=== PATIENT | female | born 1955 | race Caucasian/White ===

== ENCOUNTER 2020-09-04 22:24 | Inpatient (IN) | payer MEDICARE, OTHER ==
[~2020-09-04] VITALS: Ht 165.1 cm; Wt 56.3 kg
[2020-09-04] MEDS ORDERED: fentaNYL PF VIAL 100 MCG/2 ML VIAL IVP ONE (23:15)
[2020-09-04 23:21] LABS: BASO # 0.1 x10^3/uL (0.0-0.2); BASO % 1 % (0-3); EOS # 0.2 x10^3/uL (0.0-0.7); EOS % 2 % (0-3); HEMATOCRIT 32.5 % (36.0-47.0); LYMPH # 1.7 x10^3/uL (1.0-4.8); LYMPH % 13 % (24-48); MEAN CORPUSCULAR HEMOGLOBIN 29 pg (25-35); MEAN CORPUSCULAR HGB CONC 34 g/dL (31-37); MEAN CORPUSCULAR VOLUME 86 fL (79-100); MONO % 8 % (0-9); NEUT # 10.1 x10^3/uL (1.8-7.7); NEUT % 77 % (31-73); PLATELET COUNT 487 x10^3/uL (140-400); RED BLOOD COUNT 3.77 x10^6/uL (3.50-5.40); WHITE BLOOD COUNT 13.1 x10^3/uL (4.0-11.0)
--- NOTE | 2020-09-04 23:30 | RAD ---
XR CHEST 1V Clinical History: Reason: chf / Spl. Instructions: / History: Technique: AP view of the chest was obtained at 09/04/2020 11:04 PM. Comparison: None. Findings: The cardiomediastinal silhouette is normal. The pulmonary vasculature is normal. The lungs and pleura l margins are clear. There is deformity of the posterior lateral right sixth and seventh ribs consist ent with old fractures. Impression: No evidence of an acute cardiopulmonary process. Electronically signed by: Wyatt Harkins III, MD (09/04/2020 11:27 PM) [facility]
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
[2020-09-04 23:37] LABS: ALBUMIN 2.9 g/dL (3.4-5.0); ALBUMIN/GLOBULIN RATIO 0.7 (1.0-1.7); C-REACTIVE PROTEIN 116.6 mg/L (0-3.3); CREATININE 0.5 mg/dL (0.6-1.0); GFR 123.8; TOTAL BILIRUBIN 0.5 mg/dL (0.2-1.0); TOTAL PROTEIN 6.9 g/dL (6.4-8.2)
[2020-09-04 23:39] LABS: POTASSIUM 2.6 mmol/L (3.5-5.1)
[2020-09-04 23:50] LABS: BILIRUBIN,URINE NEGATIVE (NEG); CLARITY,URINE CLEAR; COLOR,URINE YELLOW; NITRITE,URINE NEGATIVE (NEG); PROTEIN,URINE NEGATIVE (NEG-TRACE)
[2020-09-04 23:54] LABS: RBC,URINE 0 /HPF (0-2)
[2020-09-04 23:55] LABS: BACTERIA,URINE 0 /HPF (0-FEW); BARBITURATES NEG (NEG); BENZODIAZEPINES POS (NEG); CANNABINOIDS POS (NEG); COCAINE POS (NEG); METHADONE NEG (NEG); OPIATES POS (NEG); PHENCYCLIDINE NEG (NEG)
[2020-09-04 23:56] LABS: AMPHETAMINE/METHAMPHETAMINE POS (NEG)
[2020-09-05] MEDS ORDERED: CLINDAMYCIN 600MG PREMIX 50 ML IV ONE (00:15)
[2020-09-05] MEDS ORDERED: POTASSIUM CHLORIDE 20 MEQ TABLET.ER. PO ONE (00:30)
[2020-09-05] MEDS ORDERED: IOHEXOL 350 MG/ML 100 ML VIAL. IV ONE (00:45)
[2020-09-05] MEDS ORDERED: CONTRAST GIVEN. MC PRN (00:45)
--- NOTE | 2020-09-05 01:39 | RAD ---
INDICATION: Reason: pe / Spl. Instructions: / History: Shortness of breath. COMPARISON: None. TECHNIQUE: Axial CT images obtained through the chest. Intravenous contrast utilized. Angiogram 3D images proce ssed per protocol. One or more of the following individualized dose reduction techniques were utilized for this examinat ion: 1. Automated exposure control; 2. Adjustment of the mA and/or kV according to patient size; 3 . Use of iterative reconstruction technique. FINDINGS: Mild groundglass opacities bilaterally. No evidence of pneumothorax. Ascending thoracic aorta prominent in size measuring up to about 41 mm. 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 Lymphadenopathy in the axilla. For example on the right measuring up to about 12 mm short axis. Scattered calcific atherosclerosis. Portion of ascending thoracic aorta is obscured by motion. No central pulmonary embolus with some limitation peripherally secondary to motion. Scoliotic curvature the spine with multilevel degenerative changes. Mild compression deformity at T3 and L2. IMPRESSION: No central pulmonary embolus. Ascending thoracic aorta is prominent in size. Mild groundglass opacities which could be from mild edema or small airway inflammation. Lymphadenopathy in the bilateral axilla. Could be reactive in nature but would consider obtaining a f ollow-up to ensure that this decreases in severity to exclude neoplastic causes. Partially visualized right humerus has a moth eaten appearance. Although this could be artifactual in nature may be helpful to obtain follow-up radiographs of the humerus to ensure that there is not a m arrow infiltrative lesion contributing Electronically signed by: Roger Amaral MD (09/05/2020 1:37 AM) [id number]
[2020-09-05] MEDS ORDERED: ACETAMINOPHEN 325 MG TABLET. PO PRN (02:00)
[2020-09-05] MEDS ORDERED: ONDANSETRON PF 4 MG/2 ML VIAL. IV PRN (02:00)
[2020-09-05 03:00] VITALS: BP 113/63
--- NOTE | 2020-09-05 03:25 | NUR ---
Patient admitted from ER to room 410 per wheelchair. Admitting diagnosis: bilateral lower extremity cellulitis with 3 wounds and numerous scabbed areas. Patient states she has an OCD type of illness where she picks at her skin. Patient is alert and oriented X4. Patient lives alone. Patient had positive drug screen in ER. See lab report. Patient denies using street drugs. Patient is allergic to Penicillin and Sulfa. Photos taken of wounds and scabs. IV antibiotics were started in ER. Patient has been using cane for last several weeks due to the amount of swelling in her lower legs and feet. Instructed patient that she needs to call for assistance when she gets up to walk and go to the bathroom. Patient is non-compliant with this instruction. Will continue to monitor patient and assess her needs.
[2020-09-05] MEDS: MORPHINE SULFATE 4 MG/ML VIAL. IV PRN ×4 (04:21→20:39)
[2020-09-05] MEDS ORDERED: CLINDAMYCIN 600MG PREMIX 50 ML IV SCH (06:00)
[2020-09-05 07:00] VITALS: BP 108/63
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
[2020-09-05] MEDS ORDERED: VANCOMYCIN 1 GM in IV NORMAL SALINE 250ML 250 ML IV SCH (09:45)
--- NOTE | 2020-09-05 09:49 | NUR ---
REASSESSMENTS FROM ED CLEARED FROM EMAR.
--- NOTE | 2020-09-05 09:52 | NUR ---
PT TRANSFERRED TO 6S. REPORT GIVEN TO AVELINO. COVID SWAB DONE AND SENT TO LAB PRIOR TO TRANSFER. PT BELONGINGS WERE PACKED BY PT INCLUDING PURSE, CELL PHONE AND SENIOR PROGRAM PLANNER. ASSISTED PT TO WHEELCHAIR AND WAS TAKEN TO [id number] BY ANGULAR JS DEVELOPER.
[2020-09-05] MEDS ORDERED: VANCOMYCIN 1.5 GM in IV NORMAL SALINE 500ML BAG 500 ML IV ONE (10:00)
[2020-09-05] MEDS: ENOXAPARIN 40 MG/0.4 ML SYRINGE. SQ SCH (10:41)
[2020-09-05 11:00] VITALS: BP 107/51
[2020-09-05] MEDS: VANCOMYCIN PER PHARMACY MC PRN (11:40)
--- NOTE | 2020-09-05 11:42 | NUR ---
Pharmacy Vancomycin Dosing Note S:Consulted to monitor and dose vancomycin started 09/05/20. O:JEROMY MUJICA is a 65 year old F with Cellulitis . Height: 5 feet, 5 inches Weight: 56.3 kg [place] Body Weight: 57.00 Adjusted Body Weight: 56.72 Dosing Weight: Actual Other Antibiotics: LABS: Last BUN: Last Creatinine: 0.5 Creatinine Clearance: 50 mL/min Last WBC: 13.1 Last Procalcitonin: Tmax (past 24 hours): Microbiology: I/O: Drug Levels: Last level: on at Last dose given 09/05/20 at 1100 Vancomycin Dosing: Loading Dose: 1500 mg x1 Dosing Weight: Actual Target Trough: 10-20 A: Based on: WEIGHT AND RENAL FUNCTION, VANCOMYCIN 1.5GM IV BOLUS GIVEN, P: 1. Begin Vancomycin 1000 mg IV q24h TOMORROW 2. Follow up Trough level on 09/07/20 at 1030 3. Pharmacy will continue to monitor, follow and adjust therapy as needed. KATHERINE DELACRUZ [facility], 09/05/20 [id number]
--- NOTE | 2020-09-05 12:25 | RAD ---
EXAM: Bilateral lower extremity venous Doppler sonogram. HISTORY: Pain and swelling. TECHNIQUE: Craft scale and color Doppler sonographic evaluation of the bilateral lower extremity veins with spectral waveform analysis was performed. FINDINGS: There is normal color flow, normal compressibility and there are normal spectral waveforms in the common femoral, superficial femoral, popliteal, posterior tibial and greater saphenous veins. There is bilateral lower examination soft tissue edema. There are prominent inguinal lymph nodes whic h are likely reactive in etiology. IMPRESSION: No Doppler evidence of lower extremity deep venous thrombosis. Electronically signed by: Bobbi Waddell MD (09/05/2020 12:21 PM) [id number]
[2020-09-05 15:00] VITALS: BP 107/47
--- NOTE | 2020-09-05 16:51 | NUR ---
Wound Care Wound Type/Assessment: Consult to eval and treat fo cellulitic wounds to L middle finger and RLE. Pt positive for amphetamine, opioids, THC, and benzodiazepines on admission, and denies use of any aforementioned substances. Pt his highly anxious and verbose, with rambling speech, unable to stay on topic. 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 Scabs of varying size are present on arms, hands, legs, feet. All are intact, dry and stable, except for a [id number] fluctuant scab on the R lateral calf. Her L finger is thick and callused in the palmar inner interphalangeal joint, does not appear open but is swollen, red, and painful. Distal tip of the finger is blanched. Pt states the finger has become swollen and drained pus multiple times before. She is currently on multiple IV ABT for BLE staph infection. No other open areas noted on head to toe inspection. Treatment Recommendations/Plan: Apply betadine to all scabs and leave DATABASE TESTER. Recommend xray of L middle finger to rule out abscess and osteomyelitis. Notify wound care if any scabs open and begin to drain. Education provided: Education re: skin care and hygiene, infection control Offloading surface/device: Pt is able to self turn Recommended Referrals/Tests: X ray as above Discharge Recommendations for dressings: As above. Follow up by VICENTE 09/12/20
[2020-09-05 19:00] VITALS: BP 121/38
[2020-09-05] MEDS: LACTOBACILLUS RHAMNOSUS GG 1 CAPSULE. PO SCH (20:29)
[2020-09-05 23:00] VITALS: BP 106/66
[2020-09-06 03:38] VITALS: BP 98/57
[2020-09-06] MEDS: ACETAMINOPHEN 325 MG TABLET. PO PRN ×3 (03:43→18:20)
[2020-09-06 04:24] LABS: BASO % 0 % (0-3); EOS # 0.2 x10^3/uL (0.0-0.7); EOS % 2 % (0-3); HEMATOCRIT 32.2 % (36.0-47.0); HEMOGLOBIN 10.8 g/dL (12.0-15.5); LYMPH # 1.7 x10^3/uL (1.0-4.8); LYMPH % 13 % (24-48); MEAN CORPUSCULAR HEMOGLOBIN 29 pg (25-35); MEAN CORPUSCULAR HGB CONC 34 g/dL (31-37); MEAN CORPUSCULAR VOLUME 87 fL (79-100); MONO # 0.8 x10^3/uL (0.0-1.1); MONO % 6 % (0-9); NEUT # 10.5 x10^3/uL (1.8-7.7); NEUT % 79 % (31-73); PLATELET COUNT 512 x10^3/uL (140-400); RED BLOOD COUNT 3.71 x10^6/uL (3.50-5.40); WHITE BLOOD COUNT 13.3 x10^3/uL (4.0-11.0)
[2020-09-06 05:26] LABS: CALCIUM 8.8 mg/dL (8.5-10.1); CREATININE 0.5 mg/dL (0.6-1.0); GFR 123.8; POTASSIUM 3.1 mmol/L (3.5-5.1)
[2020-09-06 07:00] VITALS: BP 99/57
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
[2020-09-06] MEDS ORDERED: POTASSIUM CHLORIDE 20 MEQ TABLET.ER. PO ONE (08:15)
[2020-09-06] MEDS: ENOXAPARIN 40 MG/0.4 ML SYRINGE. SQ SCH (08:42)
[2020-09-06] MEDS: LACTOBACILLUS RHAMNOSUS GG 1 CAPSULE. PO SCH ×2 (08:42→20:25)
[2020-09-06] MEDS: MONTELUKAST SODIUM 10 MG TABLET. PO SCH (08:52)
[2020-09-06] MEDS: HYDROCORTISONE 1% LOTION BOTTLE. TP SCH ×3 (09:56→20:24)
[2020-09-06] MEDS: VANCOMYCIN 1 GM in IV NORMAL SALINE 250ML 250 ML IV SCH (10:02)
[2020-09-06 11:00] VITALS: BP 96/52
[2020-09-06] MEDS: VANCOMYCIN PER PHARMACY MC PRN (11:17)
[2020-09-06] MEDS ORDERED: IBUPROFEN 200 MG TABLET. PO PRN (13:45)
[2020-09-06 15:00] VITALS: BP 106/44
[2020-09-06] MEDS: MELOXICAM 7.5 MG TABLET PO SCH (16:20)
--- NOTE | 2020-09-06 16:35 | NUR ---
pt has been taking her hospital gown, tele and pulse ox off continuously today. she slept for most of the day, I called the [facility] pharm to get a list of her meds but there was not many, asked pt and she said she gets them from the [facility] pharm, not able to call to get her med list on the weekend. Rah Bello RN
[2020-09-06 19:45] VITALS: BP 128/54
[2020-09-06] MEDS: PSYLLIUM HUSK (SUGAR FREE) 1 PKT PACKET PO SCH (20:24)
[2020-09-06] MEDS ORDERED: CELECOXIB 100 MG CAPSULE. PO SCH (21:00)
[2020-09-06 23:40] VITALS: BP 115/54
[2020-09-07] MEDS: ACETAMINOPHEN 325 MG TABLET. PO PRN (02:58)
[2020-09-07 02:59] VITALS: BP 126/36
[2020-09-07 07:00] VITALS: BP 115/63
[2020-09-07] MEDS: HYDROCORTISONE 1% LOTION BOTTLE. TP SCH ×3 (08:29→21:02)
[2020-09-07] MEDS: LACTOBACILLUS RHAMNOSUS GG 1 CAPSULE. PO SCH ×2 (08:30→21:02)
[2020-09-07] MEDS: ENOXAPARIN 40 MG/0.4 ML SYRINGE. SQ SCH (08:30)
[2020-09-07] MEDS: MONTELUKAST SODIUM 10 MG TABLET. PO SCH (08:30)
[2020-09-07] MEDS: hydrOXYzine 25 MG TABLET PO PRN ×2 (08:30→21:03)
[2020-09-07] MEDS: MELOXICAM 7.5 MG TABLET PO SCH (08:30)
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
[2020-09-07 11:00] VITALS: BP 119/60
[2020-09-07 11:18] LABS: CALCIUM 9.8 mg/dL (8.5-10.1); CREATININE 0.7 mg/dL (0.6-1.0); MAGNESIUM 2.3 mg/dL (1.8-2.4); POTASSIUM 3.4 mmol/L (3.5-5.1)
[2020-09-07 11:23] LABS: VANC TR 2.3 mcg/mL (10.0-20.0)
--- NOTE | 2020-09-07 11:44 | EKG ---
[facility] [address] [place] [address] Test Date: 2020-09-04 Test Time: 23:10:24 Pat Name: JEROMY MUJICA Department: Room: Gender: F Supervisor Graphite: : 1955 Requested By: ISH URBINA Order Number: [id number] Reading MD: Measurements Intervals [place] Rate: 76 P: 77 IN: 168 QRS: 48 QRSD: 92 T: 64 QT: 396 QTc: 450 Interpretive Statements SINUS RHYTHM LVH WITH REPOLARIZATION ABNORMALITY ABNORMAL ECG RI6.02 No previous ECG available for comparison
[2020-09-07] MEDS: VANCOMYCIN PER PHARMACY MC PRN ×3 (12:05→12:16)
[2020-09-07] MEDS: VANCOMYCIN 1 GM in IV NORMAL SALINE 250ML 250 ML IV SCH ×2 (12:09→23:58)
[2020-09-07] MEDS: HYDROcodone/APAP 5/325MG 1 TAB TABLET PO PRN ×2 (12:09→21:03)
--- NOTE | 2020-09-07 12:13 | NUR ---
Pharmacy Vancomycin Dosing Note S:Consulted to monitor and dose vancomycin started 09/05/20. O:JEROMY MUJICA is a 65 year old F with Cellulitis . Height: 5 feet, 5 inches Weight: 56.3 kg [place] Body Weight: 57.00 Adjusted Body Weight: 56.72 Dosing Weight: Actual Other Antibiotics: LABS: Last BUN: 7 Last Creatinine: 0.7 Creatinine Clearance: 50 mL/min Last WBC: 13.3 Last Procalcitonin: Tmax (past 24 hours): 98.6 Microbiology: Urine culture negative. I/O: 1040/ Drug Levels: Last Trough level: 2.3 on 09/07/20 at 1044 Last dose given 09/06/20 at 1002 Vancomycin Dosing: Loading Dose: 1500 mg x1 Dosing Weight: Actual Target Trough: 10-20 A: Based on trough of 2.3: P: 1. Increase Vancomycin to 1000 mg IV q12h. 2. Follow up Trough level on 09/08/20 at 2330. 3. Pharmacy will continue to monitor, follow and adjust therapy as needed. Chris Cobb [facility], 09/07/20 [id number]
[2020-09-07] MEDS ORDERED: POTASSIUM CHLORIDE 20 MEQ TABLET.ER. PO ONE (13:15)
[2020-09-07 15:00] VITALS: BP 105/61
[2020-09-07 19:48] VITALS: BP 110/56
[2020-09-07] MEDS: PSYLLIUM HUSK (SUGAR FREE) 1 PKT PACKET PO SCH (21:03)
[2020-09-07 23:30] VITALS: BP 118/63
[2020-09-08 03:32] VITALS: BP 124/57
[2020-09-08 07:46] VITALS: BP 120/61
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
[2020-09-08] MEDS: MONTELUKAST SODIUM 10 MG TABLET. PO SCH (08:34)
[2020-09-08] MEDS: LACTOBACILLUS RHAMNOSUS GG 1 CAPSULE. PO SCH ×2 (08:34→20:48)
[2020-09-08] MEDS: MELOXICAM 7.5 MG TABLET PO SCH (08:34)
[2020-09-08] MEDS: ENOXAPARIN 40 MG/0.4 ML SYRINGE. SQ SCH (08:35)
[2020-09-08] MEDS: HYDROCORTISONE 1% LOTION BOTTLE. TP SCH ×3 (08:35→20:49)
[2020-09-08] MEDS: HYDROcodone/APAP 5/325MG 1 TAB TABLET PO PRN (08:54)
[2020-09-08] MEDS: hydrOXYzine 25 MG TABLET PO PRN (08:54)
[2020-09-08] MEDS ORDERED: DIAZEPAM10 MG PO (09:09)
[2020-09-08] MEDS ORDERED: DULO30CA2 PO (09:10)
[2020-09-08] MEDS ORDERED: BUSP15TA PO (09:10)
[2020-09-08] MEDS ORDERED: ATOM40CA PO (09:11)
[2020-09-08] MEDS ORDERED: VENTOLIN HFA18 GM INH (09:13)
[2020-09-08 11:02] VITALS: BP 117/67
[2020-09-08] MEDS: VANCOMYCIN 1 GM in IV NORMAL SALINE 250ML 250 ML IV SCH ×2 (12:26→22:50)
[2020-09-08] MEDS ORDERED: ALBUTEROL SULFATE 2.5 MG/3 ML NEBU. NEB PRN (12:30)
[2020-09-08] MEDS ORDERED: diazePAM 5 MG TABLET PO SCH (13:00)
[2020-09-08] MEDS ORDERED: diazePAM 5 MG TABLET PO PRN (14:15)
[2020-09-08] MEDS: busPIRone 10 MG TABLET. PO SCH ×2 (14:37→20:48)
[2020-09-08] MEDS: DULoxetine HCL 30 MG CAPSULE.DR PO SCH (14:38)
[2020-09-08 15:20] VITALS: BP 103/49
--- NOTE | 2020-09-08 17:05 | NUR ---
SW following for discharge planning. Spoke with RN and reviewed chart. SW consulted per positive toxicology screen. Pt positive for several drugs. Referral made to Jose Guadalupe with [facility]. Pt current at [facility] for out-patient services. Pt on room air, regular diet, IV vancomycin. Pt COVID negative. Discharge plan is home, self-care. SW following.
[2020-09-08 19:00] VITALS: BP 114/57
--- NOTE | 2020-09-08 19:06 | NUR ---
Called [facility] this morning, reviewed the patient's meds. Home meds resumed today.
[2020-09-08] MEDS: PSYLLIUM HUSK (SUGAR FREE) 1 PKT PACKET PO SCH (20:49)
[2020-09-08 23:00] VITALS: BP 140/58
[2020-09-08 23:30] LABS: VANC TR 4.8 mcg/mL (10.0-20.0)
[2020-09-09 03:00] VITALS: BP 133/65
[2020-09-09 07:48] VITALS: BP 129/57
[2020-09-09] MEDS ORDERED: NON FORMULARY ITEM (Atomoxetine Hcl (Strattera) 1 CAP) PO SCH (08:00)
[2020-09-09] MEDS: DULoxetine HCL 30 MG CAPSULE.DR PO SCH (08:26)
[2020-09-09] MEDS: HYDROCORTISONE 1% LOTION BOTTLE. TP SCH ×2 (08:26→14:07)
[2020-09-09] MEDS: busPIRone 10 MG TABLET. PO SCH ×2 (08:27→14:07)
[2020-09-09] MEDS: LACTOBACILLUS RHAMNOSUS GG 1 CAPSULE. PO SCH (08:27)
[2020-09-09] MEDS: ACETAMINOPHEN 325 MG TABLET. PO PRN (08:27)
[2020-09-09] MEDS: MONTELUKAST SODIUM 10 MG TABLET. PO SCH (08:27)
[2020-09-09] MEDS: ENOXAPARIN 40 MG/0.4 ML SYRINGE. SQ SCH (08:28)
[2020-09-09] MEDS: MELOXICAM 7.5 MG TABLET PO SCH (08:34)
[2020-09-09 11:35] VITALS: BP 123/65
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
[2020-09-09] MEDS: VANCOMYCIN 1 GM in IV NORMAL SALINE 250ML 250 ML IV SCH (11:56)
[2020-09-09] MEDS: VANCOMYCIN PER PHARMACY MC PRN (14:11)
--- NOTE | 2020-09-09 14:11 | NUR ---
Pharmacy Vancomycin Dosing Note S:Consulted to monitor and dose vancomycin started 09/05/20. O:JEROMY MUJICA is a 65 year old F with Cellulitis . Height: 5 feet, 5 inches Weight: 56.3 kg [place] Body Weight: 57.00 Adjusted Body Weight: 56.72 Dosing Weight: Actual Other Antibiotics: LABS: Last BUN: 7 Last Creatinine: 0.7 Creatinine Clearance: 50 mL/min Last WBC: 13.3 Last Procalcitonin: Tmax (past 24 hours): 98.1 Microbiology: Urine culture negative. I/O: 1040/ Drug Levels: Last Trough level: 4.8 on 09/08/20 at 2300 Last dose given 09/09/20 at 1156 Vancomycin Dosing: Loading Dose: 1500 mg x1 Dosing Weight: Actual Target Trough: 10-20 A: Based on: LOW TROUGH, P: 1. INITIATE Vancomycin 1500 mg IV q12h 2. Follow up Trough level NEEDED 3. Pharmacy will continue to monitor, follow and adjust therapy as needed. MYRANDA GARCIA [facility], 09/09/20 1186
--- NOTE | 2020-09-09 14:17 | NUR ---
SW following for discharge planning. Spoke with RN and reviewed chart. SW spoke with Christian from [facility] who evaluated this patient. Pt refused out-patient substance abuse treatment and denied use of drugs. Pt is current at [facility] for out-patient MH services. Pt remains on room air and IV Vancomycin. Pt identified as BPCI, no further needs from this SW. Discharge planners to follow.
[2020-09-09] MEDS ORDERED: HYDR25TA PO (14:23)
[2020-09-09] MEDS ORDERED: PSYL3.4P PO (14:23)
[2020-09-09] MEDS ORDERED: MONT10TA49 PO (14:23)
[2020-09-09] MEDS ORDERED: DOXY100T PO (14:23)
[2020-09-09] MEDS ORDERED: LACT1CAP19 PO (14:23)
[2020-09-09] MEDS ORDERED: ACET325T9 PO (14:23)
[2020-09-09] MEDS ORDERED: HYDR99LO TP (14:23)
[2020-09-09] MEDS ORDERED: OLAN5TAB7 PO (14:23)
--- NOTE | 2020-09-09 14:25 | SNU/HH DC ---
DISCHARGE WITH HOME HEALTH DISCHARGE INFORMATION: Final Diagnosis: Problems Medical Problems: (1) Bilateral lower extremity edema Status: Acute (2) Cellulitis Status: Acute (3) Hypokalemia Status: Acute Condition on Discharge: Guarded CODE STATUS: Code Status: Full HOME HEALTH: Face to Face: I certify this patient is under my care and that I, or a nurse practitioner or physician's personal assistant working with me, had a face to face encounter that meets the physician face to face encounter requirements with this patient on []. Medical Complications: Other (SCHIZOPHRENIA) RN For Eval/Treatment: Yes Physical Therapy For: Evalulation/Treatment Occupational Therapy For: Evaluation/Treatment Speech Language Pathology For: Evaluation/Treatment Home Health Aide For: Self-care PSS DELIVERY PROFESSIONAL For: Community Resources Pt Meets Homebound Status: Limited distance walking, Poor cognition, Psychological condition POST DISCHARGE ORDERS: Activity Instructions for Disc: Activity as tolerated, Progressive ambulation DIET AFTER DISCHARGE: Cardiac FOLLOW-UP: PCP to follow Home Health: ASHANTI Follow up with: PCP IN 2 DAYS CERTIFICATION STATEMENT: Certification Statement: Certification Statement: Based on the above finding, I certify that this patient is confined to the home and needs intermittent mcfp care, physical therapy and/or speech therapy, or continues to need occupational therapy.~ This patient is under my care, and I have initiated the establishment of the plan of care.~ This patient will be followed by myself or a community physician who will periodically review the plan of care. Home Meds Active Scripts Doxycycline Hyclate (DOXYCYCLINE HYCLATE) 100 Mg Tablet, 1 TAB PO BID for INFECTION for 7 Days, #14 TAB Prov:KLARISSA RUIZ MD 09/09/20 Hydrocortisone (CORTIZONE-10) 99 Gm Lotion, 1 ONI TP TID for RASH for 14 Days, #30 MISC Prov:KLARISSA RUIZ MD 09/09/20 Lactobacillus Rhamnosus Gg (CULTURELLE) 1 Each Cap.sprink, 1 CAP PO BID for SUPPLEMENT for 30 Days, #60 CAP Prov:KLARISSA RUIZ MD 09/09/20 Psyllium Husk/Aspartame (METAMUCIL FIBER SINGLES PACKET) 3.4 Gm Powd.pack, 1 PKT PO QHS for CONSTIPATION for 30 Days, #30 PKT Prov:KLARISSA RUIZ MD 09/09/20 Montelukast Sodium (MONTELUKAST SODIUM TABLET ) 10 Mg Tablet, 10 MG PO DAILY for ALLERGY SYMPTOMS for 30 Days, #30 TAB Prov:KLARISSA RUIZ MD 09/09/20 Hydroxyzine Hcl (HYDROXYZINE HCL) 25 Mg Tablet, 25 MG PO PRN Q6HRS PRN for ITCHING for 30 Days, #100 TAB Prov:KLARISSA RUIZ MD 09/09/20 Olanzapine (OLANZAPINE ODT) 5 Mg Tab.rapdis, 5 MG PO PRN BID PRN for ANXIETY / AGITATION for 28 Days, #60 TAB Prov:KLARISSA RUZI MD 09/09/20 Acetaminophen (TYLENOL) 325 Mg Tablet, 650 MG PO PRN Q6HRS PRN for MILD PAIN / TEMP > 100.3'F for 14 Days, #60 TAB Prov:KLARISSA RUIZ MD 09/09/20 Reported Medications Albuterol Sulfate (VENTOLIN HFA INHALER) 18 Gm Hfa.aer.ad, 2 PUFF INH PRN Q6HRS PRN for SHORTNESS OF BREATH, INHALER 0 Refills 09/08/20 Buspirone Hcl (BUSPIRONE HCL) 15 Mg Tablet, 1 TAB PO TID for anxiety, #60 TAB 09/08/20 Duloxetine Hcl (CYMBALTA) 30 Mg Capsule.dr, 3 CAP PO DAILY for depression, #30 CAP 5 Refills 09/08/20 Discontinued Reported Medications Atomoxetine Hcl (STRATTERA) 40 Mg Capsule, 1 CAP PO DAILYWBKFT for anxiety, #30 CAP 1 Refill 09/08/20 Diazepam (DIAZEPAM) 10 Mg Tablet, 10 MG PO BID for anxiety, TAB 09/08/20 KLARISSA RUIZ MD Sep 09, 2020 14:25
[2020-09-09 15:14] VITALS: BP 125/60
[2020-09-09] MEDS: HYDROcodone/APAP 5/325MG 1 TAB TABLET PO PRN (16:20)
--- NOTE | 2020-09-09 17:45 | NUR ---
Discharge instructions given to patient regarding wound care and follow up appointments. Education given over cellulitis, wound care, and medications. Pt informed [facility] will be contacting her. Pt verbalizes understanding and is waiting for her ride.
[2020-09-10] MEDS ORDERED: VANCOMYCIN 1.5 GM in IV NORMAL SALINE 500ML BAG 500 ML IV SCH
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
== END 2020-09-09 18:05 | disposition home health service (06) | DRG 603 ==
LOC: ER 22:24 → 4 NORTH 09-05 02:00 → 6 SOUTH 09-05 09:48
PROVIDERS: ADMIT Family Medicine; ATTEND Family Medicine
DX: L03.116 Cellulitis of left lower limb (principal); E87.6 Hypokalemia; F14.10 Cocaine abuse, uncomplicated; F15.10 Other stimulant abuse, uncomplicated; F42.4 Excoriation (skin-picking) disorder; G43.909 Migraine, unspecified, not intractable, without status migrainosus; J44.9 Chronic obstructive pulmonary disease, unspecified; Z20.822 Contact with and (suspected) exposure to COVID-19; F32.9 Major depressive disorder, single episode, unspecified; F41.9 Anxiety disorder, unspecified; M19.90 Unspecified osteoarthritis, unspecified site; Z88.0 Allergy status to penicillin; Z59.0 Homelessness; Z86.14 Personal history of Methicillin resistant Staphylococcus aureus infection; Z88.2 Allergy status to sulfonamides
CPT/HCPCS: 36415; 71045; 71275; 80048; 80053; 80202; 80307; 81001; 83735; 83880; 84443; 84484; 85025; 85379; 86140; 87086; 87641; 93005; 93970; 96365; 96375; 99285; J1650; J2270; J3010; J3370; J3490; J7040; J7050; Q9967; U0003; G0378; J7030

== ENCOUNTER 2021-10-16 12:35 | Emergency (ER) | payer MEDICARE, OTHER ==
[~2021-10-16] VITALS: Ht 157.5 cm; Wt 56.8 kg
[~2021-10-16 12:35] MED LIST: ACET325T9 PO; ATOM40CA PO; BUSP15TA PO; DIAZEPAM10 MG PO; DOXY100T PO; DULO30CA2 PO; HYDR25TA PO; HYDR99LO TP; LACT1CAP19 PO; MONT10TA49 PO; OLAN5TAB7 PO; PSYL3.4P PO; VENTOLIN HFA18 GM INH
[2021-10-16] MEDS ORDERED: IV NORMAL SALINE 1000ML BAG 1,000 ML IV ONE (13:30)
[2021-10-16] MEDS ORDERED: KETOROLAC 15 MG/ML VIAL. IM ONE (13:30)
[2021-10-16] MEDS ORDERED: KETOROLAC 15 MG/ML VIAL. IVP ONE (13:45)
[2021-10-16 13:47] LABS: BASO % 1 % (0-3); EOS # 0.1 x10^3/uL (0.0-0.7); EOS % 1 % (0-3); HEMATOCRIT 36.2 % (36.0-47.0); HEMOGLOBIN 11.6 g/dL (12.0-15.5); LYMPH # 1.3 x10^3/uL (1.0-4.8); LYMPH % 18 % (24-48); MEAN CORPUSCULAR HEMOGLOBIN 27 pg (25-35); MEAN CORPUSCULAR HGB CONC 32 g/dL (31-37); MEAN CORPUSCULAR VOLUME 85 fL (79-100); MONO # 0.3 x10^3/uL (0.0-1.1); MONO % 4 % (0-9); NEUT # 5.5 x10^3/uL (1.8-7.7); NEUT % 76 % (31-73); PLATELET COUNT 443 x10^3/uL (140-400); RED BLOOD COUNT 4.28 x10^6/uL (3.50-5.40); RED CELL DISTRIBUTION WIDTH 15.6 % (11.5-14.5); WHITE BLOOD COUNT 7.1 x10^3/uL (4.0-11.0)
--- NOTE | 2021-10-16 13:49 | RAD ---
EXAM: Chest, single view. HISTORY: Chest pain. COMPARISON: 09/04/2020 FINDINGS: A frontal view of the chest is obtained. There is no infiltrate, pleural effusion or pneumo thorax. There is a nodule overlying the right lower lobe possibly due to a nipple shadow. There aren' t healed rib fractures. The heart is normal in size. IMPRESSION: 1. No acute pulmonary finding. 2. Nodule overlying the right lower thorax likely due to a nipple shadow. Short-term radiographic fol low-up following placement of nipple markers can be performed for confirmation. Electronically signed by: Bobbi Waddell MD (10/16/2021 1:47 PM) [id number]
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
[2021-10-16 14:02] LABS: CALCIUM 8.9 mg/dL (8.5-10.1); CREATININE 0.6 mg/dL (0.6-1.0); POTASSIUM 3.6 mmol/L (3.5-5.1)
[2021-10-16 14:07] LABS: ALBUMIN/GLOBULIN RATIO 0.7 (1.0-1.7); MAGNESIUM 2.1 mg/dL (1.8-2.4); TOTAL BILIRUBIN 0.3 mg/dL (0.2-1.0); TOTAL PROTEIN 7.2 g/dL (6.4-8.2)
[2021-10-16] MEDS ORDERED: IOHEXOL 350 MG/ML 100 ML VIAL. IV ONE (14:45)
[2021-10-16] MEDS ORDERED: CONTRAST GIVEN. MC PRN (14:45)
--- NOTE | 2021-10-16 15:13 | RAD ---
INDICATION: Reason: CP, RLE swelling, elevated DDimer / Spl. Instructions: / History: COMPARISON: August 2020 TECHNIQUE: Grayscale, color and doppler ultrasound images were obtained of the right lower extremity venous vasculature. RIGHT: No thrombus identified in the common femoral vein, femoral vein, popliteal vein or visualized calf ve ins. IMPRESSION: * No thrombus identified in deep venous system of right lower extremity. Electronically signed by: Roger Amaral MD (10/16/2021 3:11 PM) [id number]
--- NOTE | 2021-10-16 15:35 | RAD ---
Examination: CT angiography chest with IV contrast HISTORY: History of chest pain, elevated d-dimer COMPARISON: 09/05/2020 TECHNIQUE: Axial CT angiographic images of chest were performed IV contrast. Coronal and sagittal 3-D MIP reformats are performed Exposure: One or more of the following individualized dose reduction techniques were utilized for thi s examination: 1. Automated exposure control 2. Adjustment of the mA and/or kV according to patient size 3. Use of iterative reconstruction technique FINDINGS: The visualized thyroid gland grossly appears unremarkable. Central airways are patent. The ascending aorta measures 3.9 cm in transverse dimension. There is no evidence of filling defect identified in the main pulmonary arterial trunk and right and left main pulmonary arteries and visualized lobar, se gmental pulmonary arteries. Mild bibasilar lung atelectasis. The liver, spleen, adrenals grossly appe ars unremarkable. Mild degenerative changes thoracic spine. IMPRESSION: 1. No evidence of pulmonary embolism. 2. Mild bibasilar lung atelectasis. Electronically signed by: Francisco Altman MD (10/16/2021 3:33 PM) [id number]
[2021-10-16 16:25] VITALS: BP 98/56
--- NOTE | 2021-10-17 03:55 | EKG ---
[facility] [address] [place] [address] Test Date: 2021-10-16 Test Time: 12:56:15 Pat Name: JEROMY MUJICA Department: Room: Gender: F Supervisor [place]: : 1955 Requested By: SINAN SAAVEDRA Order Number: [id number] Reading MD: Ash Wayne Measurements Intervals Gibson Rate: 79 P: 45 NE: 162 QRS: 46 QRSD: 70 T: 56 QT: 348 QTc: 400 Interpretive Statements SINUS RHYTHM NORMAL ECG Electronically Signed On 10-18-2021 14:00:17 [employer] by Ash Wanye
== END 2021-10-16 16:40 | disposition home or self-care (01) ==
LOC: ER 12:35
DX: R07.89 Other chest pain (principal); M79.604 Pain in right leg; R79.1 Abnormal coagulation profile; J44.9 Chronic obstructive pulmonary disease, unspecified; G43.909 Migraine, unspecified, not intractable, without status migrainosus; Z87.891 Personal history of nicotine dependence; F41.9 Anxiety disorder, unspecified; Z88.0 Allergy status to penicillin; Z88.2 Allergy status to sulfonamides
CPT/HCPCS: 36415; 71045; 71275; 80053; 83735; 84484; 85025; 85379; 93005; 93971; 96361; 96374; 99285; J1885; J7030; Q9967